=== PATIENT | male | born 1940 | race Caucasian/White ===

== ENCOUNTER 2016-12-29 23:16 | Emergency (ER) | payer MEDICARE, BC ==
[~2016-12-29] VITALS: Ht 170.2 cm; Wt 93.2 kg
[~2016-12-29 23:16] MED LIST: AMBIEN 10MG10 MG PO; AMIODARONE HCL200 MG PO; ASPIR LOW81 MG PO; BUPROPION HCL150 M1 PO; CARVEDILOL3.125 MG PO; COSOPT EYE DROPS OU; COUMADIN5 M1 PO; COUMADIN5 MG PO; COUMADIN7.5 MG PO; EC-NAPROSYN500 MG PO; HYDROCHLOROTH12.5 M2 PO; LATANOPROST 2.2.5 ML OP; LEVOTHYROXIN0.112 MG PO; LISINOPRIL10 MG PO; MIRALAX17 GM PO; NORCO 325 MG-51 TAB PO; PULMICORT180 MCG/A1; RAPAFLO8 MG PO; TESSALON PERLE100 M1 PO; WELLBUTRIN SR150 M2 PO; XANAX0.25 M1 PO; ZITHROMAX Z PA250 MG PO
[2016-12-30] MEDS ORDERED: LORAZEPAM0.5 M1 PO (01:29)
[2016-12-30] MEDS ORDERED: OMEPRAZOLE20 MG PO (01:29)
[2016-12-30 01:36] VITALS: BP 187/101
== END 2016-12-30 01:36 | disposition home or self-care (01) ==
LOC: ED 23:16
DX: R06.4 Hyperventilation (principal); K21.9 Gastro-esophageal reflux disease without esophagitis; J44.9 Chronic obstructive pulmonary disease, unspecified; J45.909 Unspecified asthma, uncomplicated; K43.9 Ventral hernia without obstruction or gangrene; F32.9 Major depressive disorder, single episode, unspecified; F41.9 Anxiety disorder, unspecified; R42 Dizziness and giddiness; R07.89 Other chest pain; R06.02 Shortness of breath
CPT/HCPCS: J2060

== ENCOUNTER → 2017-01-06 | Day surgery (SDC) | payer BC ==
[2016-12-30 01:36] VITALS: BP 187/101
[~2017-01-06] MED LIST changes: +LORAZEPAM0.5 M1 PO; +OMEPRAZOLE20 MG PO
== END ==
LOC: MSO 08:09
DX: R13.10 Dysphagia, unspecified (principal); Z79.01 Long term (current) use of anticoagulants; I10 Essential (primary) hypertension; I48.91 Unspecified atrial fibrillation; G47.33 Obstructive sleep apnea (adult) (pediatric); Z86.711 Personal history of pulmonary embolism
CPT/HCPCS: 00740; J7120

== ENCOUNTER → 2017-04-22 | Outpatient (CLI) | payer BC | LOC: RAD 08:42 | DX: Z01.818 Encounter for other preprocedural examination (principal); Z86.718 Personal history of other venous thrombosis and embolism ==

== ENCOUNTER → 2017-06-06 | Outpatient (CLI) | payer BC | LOC: PT 08:17 | DX: Z01.818 Encounter for other preprocedural examination (principal) ==

== ENCOUNTER 2017-07-18 11:30 | Outpatient (RCR) | payer BC | END 2017-07-18 12:00 | disposition home or self-care (01) | LOC: PT 11:30 | DX: Z47.1 Aftercare following joint replacement surgery (principal); Z96.652 Presence of left artificial knee joint | CPT/HCPCS: G8978-GP; G8979-GP ==

== ENCOUNTER 2017-10-07 10:00 | Outpatient (RCR) | payer BC | END 2017-10-07 10:30 | disposition home or self-care (01) | LOC: PT 10:00 | DX: M54.5 Low back pain (principal); Z96.652 Presence of left artificial knee joint | CPT/HCPCS: G8978-GP; G8979-GP ==

== ENCOUNTER 2017-12-12 21:18 | Inpatient (IN) | payer MEDICARE ==
[~2017-12-12] VITALS: Ht 172.7 cm; Wt 93.0 kg
[2017-12-12 21:59] LABS: HEMATOCRIT 55.6 % (42.0-52.0); HEMOGLOBIN 17.7 g/dL (13.5-18.0); MEAN CELL VOLUME 86 fl (78-100); MEAN CORPUSCULAR HEMOGLOBIN 27 pg (27-31); MEAN CORPUSCULAR HGB CONC 32 g/dL (33-37); MEAN PLATELET VOLUME 9.9 fl (7.4-10.4); PLATELET COUNT 225 K/mm3 (130-400); RED BLOOD COUNT 6.48 M/mm3 (4.20-5.60); RED CELL DISTRIBUTION WIDTH 15.4 % (11.5-14.5); WHITE BLOOD COUNT 14.1 K/mm3 (4.8-10.8)
[2017-12-12 22:02] LABS: ALBUMIN 5.1 g/dL (3.5-5.0); BUN/CREATININE RATIO 19.4 (6.0-26.0); CALCIUM 9.8 mg/dL (8.4-10.2); TOTAL BILIRUBIN 0.9 mg/dL (0.2-1.3); TOTAL PROTEIN 9.3 g/dL (6.3-8.2)
[2017-12-12 22:04] LABS: PROTHROMBIN TIME 28.2 SECONDS (9.0-12.0)
[2017-12-12 22:13] LABS: BAND 1 % (0-10); LYMPHOCYTE 3 % (20-51); MONOCYTE 3 % (3-10); NEUTROPHILS 93 % (42-75)
[2017-12-12] MEDS ORDERED: PULMICORT90 MCG/Ac1 IH (23:48)
[2017-12-12] MEDS ORDERED: AMBIEN10 MG PO (23:49)
[2017-12-12] MEDS ORDERED: COUMADIN 77.5 MG/TAB PO (23:49)
[2017-12-12] MEDS ORDERED: PERCOCET 325 MG1 TA2 PO (23:56)
[2017-12-12] MEDS ORDERED: PRILOSEC 20MG20 MG PO (23:56)
[2017-12-12] MEDS ORDERED: ULTRAM50 M1 PO (23:57)
[2017-12-12] MEDS ORDERED: SYNTHROID112 MCG PO (23:57)
[2017-12-12] MEDS ORDERED: NORCO 325 MG-51 TA1 PO (23:57)
[2017-12-12] MEDS ORDERED: WELLBUTRIN PO (23:58)
[2017-12-12] MEDS ORDERED: COREG 3.123.125 MG/T PO (23:58)
[2017-12-12] MEDS ORDERED: COSOPT EYE DROP10 ML OP (23:58)
[2017-12-12] MEDS ORDERED: ZOLOFT 50MG50 MG PO (23:59)
[2017-12-12] MEDS ORDERED: HCTZ 25MG25 MG PO (23:59)
[2017-12-13] VITALS (8 sets, daily range): BP systolic 130–163; BP diastolic 74–101
[2017-12-13] MEDS ORDERED: WELLBUTRIN SR150 M3 PO (00:10)
[2017-12-13 09:15] LABS: HEMATOCRIT 47.5 % (42.0-52.0); HEMOGLOBIN 15.2 g/dL (13.5-18.0); MEAN CELL VOLUME 88 fl (78-100); MEAN CORPUSCULAR HEMOGLOBIN 28 pg (27-31); MEAN CORPUSCULAR HGB CONC 32 g/dL (33-37); MEAN PLATELET VOLUME 10.3 fl (7.4-10.4); PLATELET COUNT 176 K/mm3 (130-400); RED BLOOD COUNT 5.41 M/mm3 (4.20-5.60); RED CELL DISTRIBUTION WIDTH 14.9 % (11.5-14.5); WHITE BLOOD COUNT 10.5 K/mm3 (4.8-10.8)
[2017-12-13 09:35] LABS: BAND 1 % (0-10); NEUTROPHILS 91 % (42-75)
[2017-12-13 09:36] LABS: LYMPHOCYTE 3 % (20-51); MONOCYTE 5 % (3-10)
[2017-12-13 09:43] LABS: BUN/CREATININE RATIO 25.4 (6.0-26.0); CALCIUM 8.4 mg/dL (8.4-10.2)
[2017-12-14 02:47] VITALS: BP 154/88
[2017-12-14 06:24] VITALS: BP 145/92
[2017-12-14 11:12] VITALS: BP 154/91
[2017-12-14 15:19] VITALS: BP 179/103
[2017-12-14 18:21] VITALS: BP 144/81
[2017-12-14 23:22] VITALS: BP 153/90
[2017-12-15 02:46] VITALS: BP 163/96
[2017-12-15 06:39] VITALS: BP 148/87
[2017-12-15 06:46] LABS: EOS # 0.1 (0.04-0.40); EOS % 1.7 % (0.0-4.0); HEMATOCRIT 43.9 % (42.0-52.0); HEMOGLOBIN 13.9 g/dL (13.5-18.0); LYMPH# 1.4 (1.50-4.00); MEAN CELL VOLUME 88 fl (78-100); MEAN CORPUSCULAR HEMOGLOBIN 28 pg (27-31); MEAN CORPUSCULAR HGB CONC 32 g/dL (33-37); MEAN PLATELET VOLUME 9.4 fl (7.4-10.4); MONO # 0.7 (0.20-0.80); NEU # 4.4 (1.40-6.50); PLATELET COUNT 156 K/mm3 (130-400); RED BLOOD COUNT 5.01 M/mm3 (4.20-5.60); RED CELL DISTRIBUTION WIDTH 14.5 % (11.5-14.5); WHITE BLOOD COUNT 6.6 K/mm3 (4.8-10.8)
[2017-12-15 06:53] LABS: PROTHROMBIN TIME 26.8 SECONDS (9.0-12.0)
[2017-12-15 07:17] LABS: BUN/CREATININE RATIO 12.2 (6.0-26.0); CALCIUM 8.1 mg/dL (8.4-10.2); POTASSIUM 3.2 mmol/L (3.6-5.0)
[2017-12-15 11:20] VITALS: BP 156/100
[2017-12-15] MEDS ORDERED: MIRALAX 255 GM255 GM PO (12:13)
[2017-12-16] MEDS ORDERED: HYDROCHLOROTH12.5 M2 PO (14:08)
[2017-12-16] MEDS ORDERED: WELLBUTRIN SR150 M2 PO (14:13)
[2017-12-16] MEDS ORDERED: OMEPRAZOLE40 MG PO (14:14)
== END 2017-12-15 13:00 | disposition home or self-care (01) | DRG 390 ==
LOC: ED 21:18 → MED/SURG 23:27
PROVIDERS: Family Medicine; ADMIT Nurse Practitioner Primary Care
DX: K56.7 Ileus, unspecified (principal); I10 Essential (primary) hypertension; I48.91 Unspecified atrial fibrillation; Z79.01 Long term (current) use of anticoagulants; Z86.711 Personal history of pulmonary embolism; Z87.891 Personal history of nicotine dependence; Z85.030 Personal history of malignant carcinoid tumor of large intestine; E87.6 Hypokalemia
CPT/HCPCS: J2270; J2405; J7030; Q9967

== ENCOUNTER 2017-12-16 10:27 | Emergency (ER) | payer MEDICARE ==
[~2017-12-16] VITALS: Ht 172.7 cm; Wt 90.9 kg
[~2017-12-16 10:27] MED LIST changes: +AMBIEN10 MG PO; +COREG 3.123.125 MG/T PO; +COSOPT EYE DROP10 ML OP; +COUMADIN 77.5 MG/TAB PO; +HCTZ 25MG25 MG PO; +MIRALAX 255 GM255 GM PO; +NORCO 325 MG-51 TA1 PO; +PERCOCET 325 MG1 TA2 PO; +PRILOSEC 20MG20 MG PO; +PULMICORT90 MCG/Ac1 IH; +SYNTHROID112 MCG PO; +ULTRAM50 M1 PO; +WELLBUTRIN PO; +WELLBUTRIN SR150 M3 PO; +ZOLOFT 50MG50 MG PO
[2017-12-16 11:05] LABS: EOS # 0.1 (0.04-0.40); EOS % 0.9 % (0.0-4.0); HEMATOCRIT 49.9 % (42.0-52.0); HEMOGLOBIN 15.7 g/dL (13.5-18.0); LYMPH# 1.2 (1.50-4.00); MEAN CELL VOLUME 87 fl (78-100); MEAN CORPUSCULAR HEMOGLOBIN 27 pg (27-31); MEAN CORPUSCULAR HGB CONC 32 g/dL (33-37); MEAN PLATELET VOLUME 9.6 fl (7.4-10.4); MONO # 0.7 (0.20-0.80); NEU # 5.6 (1.40-6.50); PLATELET COUNT 184 K/mm3 (130-400); RED BLOOD COUNT 5.77 M/mm3 (4.20-5.60); RED CELL DISTRIBUTION WIDTH 14.8 % (11.5-14.5); WHITE BLOOD COUNT 7.6 K/mm3 (4.8-10.8)
[2017-12-16 11:22] LABS: BUN/CREATININE RATIO 11.4 (6.0-26.0); POTASSIUM 3.5 mmol/L (3.6-5.0); TOTAL PROTEIN 7.5 g/dL (6.3-8.2)
[2017-12-16 12:43] LABS: PH-URINE 6.5 (5.0 - 8.0); URINE APPEARANCE CLEAR; URINE BILIRUBIN NEGATIVE (NEGATIVE); URINE BLOOD TRACE (NEGATIVE); URINE COLOR YELLOW; URINE GLUCOSE NEGATIVE (NEGATIVE); URINE KETONE SMALL (NEGATIVE); URINE LEUKOCYTE ESTERASE NEGATIVE (NEGATIVE); URINE MUCUS PRESENT (NOT PRESENT); URINE NITRATE NEGATIVE (NEGATIVE); URINE PROTEIN(semi-quant) TRACE mg/dL (NEGATIVE); URINE UROBILINOGEN 4 mg/dL (NORMAL)
[2017-12-16] MEDS ORDERED: HYDROCHLOROTH12.5 M2 PO (14:08)
[2017-12-16] MEDS ORDERED: WELLBUTRIN SR150 M2 PO (14:13)
[2017-12-16] MEDS ORDERED: OMEPRAZOLE40 MG PO (14:14)
[2017-12-16 15:00] VITALS: BP 153/87
== END 2017-12-16 16:00 | disposition short-term general hospital (02) ==
LOC: ED 10:27
PROVIDERS: Nurse Practitioner
DX: K56.609 Unspecified intestinal obstruction, unspecified as to partial versus complete obstruction (principal); I48.91 Unspecified atrial fibrillation; Z79.01 Long term (current) use of anticoagulants; I10 Essential (primary) hypertension; Z86.711 Personal history of pulmonary embolism; Z85.038 Personal history of other malignant neoplasm of large intestine; Z90.49 Acquired absence of other specified parts of digestive tract; E03.9 Hypothyroidism, unspecified; Z79.899 Other long term (current) drug therapy
CPT/HCPCS: J1885; J2405; J7030

== ENCOUNTER 2018-02-18 13:35 | Emergency (ER) | payer MEDICARE ==
[~2018-02-18] VITALS: Ht 172.7 cm; Wt 95.5 kg
[~2018-02-18 13:35] MED LIST changes: +OMEPRAZOLE40 MG PO
[2018-02-18] MEDS ORDERED: KEFLEX250 M1 PO (14:51)
[2018-02-18 14:57] VITALS: BP 118/73
== END 2018-02-18 15:08 | disposition home or self-care (01) ==
LOC: ED 13:35
DX: S41.111A Laceration without foreign body of right upper arm, initial encounter (principal); W55.22XA Struck by cow, initial encounter; Y93.K9 Activity, other involving animal care; Y92.008 Other place in unspecified non-institutional (private) residence as the place of occurrence of the external cause; I10 Essential (primary) hypertension; Z79.01 Long term (current) use of anticoagulants; Z79.899 Other long term (current) drug therapy; I48.91 Unspecified atrial fibrillation

== ENCOUNTER 2018-10-16 09:00 | Outpatient (RCR) | payer MEDICARE ==
[~2018-10-16 09:00] MED LIST changes: +KEFLEX250 M1 PO
== END 2018-10-16 09:30 | disposition home or self-care (01) ==
LOC: PT 09:00
DX: R26.89 Other abnormalities of gait and mobility (principal); G20 Parkinson's disease; I10 Essential (primary) hypertension

== ENCOUNTER 2019-03-27 13:30 | Emergency (ER) | payer MEDICARE ==
[~2019-03-27] VITALS: Ht 172.7 cm; Wt 104.5 kg
[2019-03-27 13:59] LABS: EOS # 0.2 (0.04-0.40); EOS % 2.1 % (0.0-4.0); HEMATOCRIT 39.2 % (42.0-52.0); LYMPH# 1.3 (1.50-4.00); MEAN CELL VOLUME 89 fl (78-100); MEAN CORPUSCULAR HEMOGLOBIN 27 pg (27-31); MEAN CORPUSCULAR HGB CONC 31 g/dL (33-37); MEAN PLATELET VOLUME 8.8 fl (7.4-10.4); MONO # 0.6 (0.20-0.80); NEU # 5.7 (1.40-6.50); PLATELET COUNT 245 K/mm3 (130-400); RED BLOOD COUNT 4.43 M/mm3 (4.20-5.60); WHITE BLOOD COUNT 7.8 K/mm3 (4.8-10.8)
[2019-03-27] MEDS ORDERED: MIRAPEX0.5 MG PO (13:59)
[2019-03-27] MEDS ORDERED: WARFARIN SOD5 MG PO (13:59)
[2019-03-27] MEDS ORDERED: CARVEDILOL3.125 MG PO (13:59)
[2019-03-27] MEDS ORDERED: NUPLAZID34 MG PO (14:00)
[2019-03-27] MEDS ORDERED: TEMAZEPAM30 M1 PO (14:00)
[2019-03-27 14:31] LABS: PROTHROMBIN TIME 26.4 SECONDS (9.0-12.0)
[2019-03-27 16:02] VITALS: BP 126/87
== END 2019-03-27 16:00 | disposition home or self-care (01) ==
LOC: ED 13:30
PROVIDERS: Family Medicine
DX: S70.312A Abrasion, left thigh, initial encounter (principal); R60.0 Localized edema; I48.91 Unspecified atrial fibrillation; G20 Parkinson's disease; Z95.1 Presence of aortocoronary bypass graft; Z90.79 Acquired absence of other genital organ(s); Z79.52 Long term (current) use of systemic steroids; Z79.01 Long term (current) use of anticoagulants; W18.30XA Fall on same level, unspecified, initial encounter; Y92.009 Unspecified place in unspecified non-institutional (private) residence as the place of occurrence of the external cause

== ENCOUNTER 2019-04-01 08:39 | Emergency (ER) | payer MEDICARE ==
[~2019-04-01] VITALS: Wt 107.5 kg
[~2019-04-01 08:39] MED LIST changes: +MIRAPEX0.5 MG PO; +NUPLAZID34 MG PO; +TEMAZEPAM30 M1 PO; +WARFARIN SOD5 MG PO
[2019-04-01 09:06] LABS: HEMATOCRIT 40.7 % (42.0-52.0); HEMOGLOBIN 12.5 g/dL (13.5-18.0); MEAN CELL VOLUME 89 fl (78-100); MEAN CORPUSCULAR HEMOGLOBIN 27 pg (27-31); MEAN CORPUSCULAR HGB CONC 31 g/dL (33-37); MEAN PLATELET VOLUME 9.3 fl (7.4-10.4); PLATELET COUNT 292 K/mm3 (130-400); RED CELL DISTRIBUTION WIDTH 16.8 % (11.5-14.5)
[2019-04-01 09:15] LABS: LYMPHOCYTE 12 % (20-51); MONOCYTE 7 % (3-10); NEUTROPHILS 79 % (42-75)
[2019-04-01 09:16] LABS: ALBUMIN 3.8 g/dL (3.4-4.8); POTASSIUM 3.8 mmol/L (3.5-5.1)
[2019-04-01 09:17] LABS: CALCIUM 9.9 mg/dL (8.3-10.5)
[2019-04-01 09:18] LABS: TOTAL PROTEIN 7.1 g/dL (6.2-8.1)
[2019-04-01 09:20] LABS: TOTAL BILIRUBIN 0.9 mg/dL (0.2-1.2)
[2019-04-01 09:29] LABS: D-DIMER 1.34 mg/L FEU (0.15-0.50)
[2019-04-01 09:31] LABS: TROPONIN-I 0.4 ng/mL (<0.030)
[2019-04-01 09:36] LABS: PROTHROMBIN TIME 22.5 SECONDS (9.0-12.0)
[2019-04-01 12:35] LABS: URINE APPEARANCE CLEAR; URINE COLOR YELLOW
[2019-04-01 12:36] LABS: URINE BILIRUBIN NEGATIVE (NEGATIVE); URINE BLOOD NEGATIVE (NEGATIVE); URINE GLUCOSE NEGATIVE (NEGATIVE); URINE KETONE NEGATIVE (NEGATIVE); URINE LEUKOCYTE ESTERASE NEGATIVE (NEGATIVE); URINE MUCUS PRESENT (NOT PRESENT); URINE NITRATE NEGATIVE (NEGATIVE); URINE PROTEIN(semi-quant) TRACE mg/dL (NEGATIVE); URINE UROBILINOGEN NORMAL (NORMAL); URINE WBC 0-1 /hpf (0-3)
[2019-04-01 16:29] VITALS: BP 136/94
== END 2019-04-01 16:20 | disposition short-term general hospital (02) ==
LOC: ED 08:39
PROVIDERS: Nurse Practitioner Primary Care
DX: I26.99 Other pulmonary embolism without acute cor pulmonale (principal); I48.92 Unspecified atrial flutter; R79.89 Other specified abnormal findings of blood chemistry; I10 Essential (primary) hypertension; E07.9 Disorder of thyroid, unspecified; F32.9 Major depressive disorder, single episode, unspecified; K21.9 Gastro-esophageal reflux disease without esophagitis; Z79.01 Long term (current) use of anticoagulants; Z85.038 Personal history of other malignant neoplasm of large intestine; Z90.49 Acquired absence of other specified parts of digestive tract; Z98.890 Other specified postprocedural states; Z90.79 Acquired absence of other genital organ(s)
CPT/HCPCS: J2270; J2405; J3490; J7030; Q9967

== ENCOUNTER 2019-04-13 11:32 | Emergency (ER) | payer MEDICARE ==
[~2019-04-13] VITALS: Wt 103.6 kg
[2019-04-13] MEDS ORDERED: ASPIRIN E.C. 8181 MG PO (11:37)
[2019-04-13] MEDS ORDERED: FUROSEMIDE20 MG PO (11:38)
[2019-04-13] MEDS ORDERED: XARELTO15 MG PO (11:38)
[2019-04-13 11:57] LABS: EOS # 0.2 (0.04-0.40); HEMATOCRIT 43.1 % (42.0-52.0); HEMOGLOBIN 12.9 g/dL (13.5-18.0); LYMPH# 1.3 (1.50-4.00); MEAN CELL VOLUME 89 fl (78-100); MEAN CORPUSCULAR HEMOGLOBIN 27 pg (27-31); MEAN CORPUSCULAR HGB CONC 30 g/dL (33-37); MONO # 0.5 (0.20-0.80); NEU # 6.8 (1.40-6.50); PLATELET COUNT 361 K/mm3 (130-400); RED BLOOD COUNT 4.87 M/mm3 (4.20-5.60); RED CELL DISTRIBUTION WIDTH 16.5 % (11.5-14.5); WHITE BLOOD COUNT 8.9 K/mm3 (4.8-10.8)
[2019-04-13 12:07] LABS: ALBUMIN 3.9 g/dL (3.4-4.8); POTASSIUM 4.2 mmol/L (3.5-5.1)
[2019-04-13 12:08] LABS: CALCIUM 9.7 mg/dL (8.3-10.5)
[2019-04-13 12:09] LABS: TOTAL PROTEIN 7.5 g/dL (6.2-8.1)
[2019-04-13 12:11] LABS: TOTAL BILIRUBIN 0.4 mg/dL (0.2-1.2)
[2019-04-13 12:21] LABS: TROPONIN-I 0.15 ng/mL (<0.030)
[2019-04-13 14:00] VITALS: BP 151/87
== END 2019-04-13 14:12 | disposition short-term general hospital (02) ==
LOC: ED 11:32
PROVIDERS: Nurse Practitioner Primary Care
DX: I22.2 Subsequent non-ST elevation (NSTEMI) myocardial infarction (principal); I21.9 Acute myocardial infarction, unspecified; I48.91 Unspecified atrial fibrillation; I25.10 Atherosclerotic heart disease of native coronary artery without angina pectoris; I10 Essential (primary) hypertension; E07.9 Disorder of thyroid, unspecified; F32.9 Major depressive disorder, single episode, unspecified; Z85.038 Personal history of other malignant neoplasm of large intestine; Z86.711 Personal history of pulmonary embolism; Z90.49 Acquired absence of other specified parts of digestive tract; Z95.5 Presence of coronary angioplasty implant and graft; Z90.79 Acquired absence of other genital organ(s); Z90.89 Acquired absence of other organs; Z98.890 Other specified postprocedural states; Z79.01 Long term (current) use of anticoagulants; Z79.82 Long term (current) use of aspirin

== ENCOUNTER 2019-07-22 10:00 | Outpatient (RCR) | payer MEDICARE ==
[~2019-07-22 10:00] MED LIST changes: +ASPIRIN E.C. 8181 MG PO; +FUROSEMIDE20 MG PO; +XARELTO15 MG PO
== END 2019-08-01 | disposition home or self-care (01) ==
LOC: CARDREHAB
DX: Z48.812 Encounter for surgical aftercare following surgery on the circulatory system (principal); Z95.5 Presence of coronary angioplasty implant and graft; I25.2 Old myocardial infarction

== ENCOUNTER 2019-08-08 12:19 | Emergency (ER) | payer MEDICARE ==
[~2019-08-08] VITALS: Ht 170.2 cm; Wt 102.3 kg
[2019-08-08 13:21] LABS: EOS # 0.1 (0.04-0.40); EOS % 1.4 % (0.0-4.0); HEMATOCRIT 46.3 % (42.0-52.0); HEMOGLOBIN 14.1 g/dL (13.5-18.0); LYMPH# 1.4 (1.50-4.00); MEAN CELL VOLUME 87 fl (78-100); MEAN CORPUSCULAR HEMOGLOBIN 26 pg (27-31); MEAN CORPUSCULAR HGB CONC 31 g/dL (33-37); MEAN PLATELET VOLUME 10.4 fl (7.4-10.4); MONO # 0.5 (0.20-0.80); NEU # 5.9 (1.40-6.50); PLATELET COUNT 174 K/mm3 (130-400); RED BLOOD COUNT 5.34 M/mm3 (4.20-5.60); RED CELL DISTRIBUTION WIDTH 16.1 % (11.5-14.5); WHITE BLOOD COUNT 7.9 K/mm3 (4.8-10.8)
[2019-08-08 13:35] LABS: ALBUMIN 4.3 g/dL (3.4-4.8); POTASSIUM 3.6 mmol/L (3.5-5.1); SODIUM 144 mmol/L (136-145)
[2019-08-08 13:36] LABS: CALCIUM 9.7 mg/dL (8.3-10.5)
[2019-08-08 13:37] LABS: GLUCOSE 134 mg/dL (75-110); TOTAL PROTEIN 7.3 g/dL (6.2-8.1)
[2019-08-08 13:38] LABS: CARBON DIOXIDE 30 mmol/L (23-31)
[2019-08-08 13:39] LABS: TOTAL BILIRUBIN 0.3 mg/dL (0.2-1.2)
[2019-08-08 13:43] LABS: AST-SGOT 15 U/L (5-34)
[2019-08-08 13:44] LABS: ALT/SGPT 22 U/L (0-55)
[2019-08-08 13:53] LABS: TROPONIN-I < 0.03 ng/mL (<0.030)
[2019-08-08] MEDS ORDERED: GOOD NEIGHBOR P20 M1 PO (14:52)
[2019-08-08 15:07] VITALS: BP 123/61
[2019-08-08] MEDS ORDERED: LIPITOR 40MG TA40 MG PO (16:19)
[2019-08-08] MEDS ORDERED: PROVENTIL0.09 MG/A1 IH (16:19)
[2019-08-08] MEDS ORDERED: TESSALON PERLE100 M1 PO (16:20)
[2019-08-08] MEDS ORDERED: TUMS REGULAR S500 MG PO (16:29)
[2019-08-08] MEDS ORDERED: CLOPIDOGREL PO (16:30)
[2019-08-08] MEDS ORDERED: ATIVAN0.5 MG PO (16:31)
[2019-08-08] MEDS ORDERED: XALATAN 2.5 ML2.5 ML OU (16:31)
[2019-08-08] MEDS ORDERED: NITROSTAT0.4 M1 SL (16:33)
[2019-08-08] MEDS ORDERED: NUPLAZID34 MG PO (16:34)
[2019-08-08] MEDS ORDERED: OCUFLOX5 ML OP (16:34)
[2019-08-08] MEDS ORDERED: KLOR-CON 1010 MEQ (16:35)
[2019-08-08] MEDS ORDERED: RESTORIL15 MG PO (16:36)
[2019-08-08] MEDS ORDERED: DESYREL50 MG PO (16:37)
[2019-08-08] MEDS ORDERED: TORSEMIDE10 M1 PO (16:37)
[2019-08-08] MEDS ORDERED: XARELTO20 MG PO (16:38)
== END 2019-08-08 15:07 | disposition home or self-care (01) ==
LOC: ED 12:19
PROVIDERS: Family Medicine
DX: R06.00 Dyspnea, unspecified (principal); I50.9 Heart failure, unspecified; K21.9 Gastro-esophageal reflux disease without esophagitis; G47.30 Sleep apnea, unspecified; I48.91 Unspecified atrial fibrillation; I25.10 Atherosclerotic heart disease of native coronary artery without angina pectoris; Z79.01 Long term (current) use of anticoagulants; Z79.82 Long term (current) use of aspirin; Z85.038 Personal history of other malignant neoplasm of large intestine; Z86.711 Personal history of pulmonary embolism; Z87.891 Personal history of nicotine dependence; Z95.5 Presence of coronary angioplasty implant and graft; Z96.612 Presence of left artificial shoulder joint; Z96.652 Presence of left artificial knee joint
CPT/HCPCS: J1940

== ENCOUNTER 2019-08-31 11:42 | Emergency (ER) | payer MEDICARE ==
[~2019-08-31] VITALS: Wt 106.4 kg
[~2019-08-31 11:42] MED LIST changes: +ATIVAN0.5 MG PO; +CLOPIDOGREL PO; +DESYREL50 MG PO; +GOOD NEIGHBOR P20 M1 PO; +KLOR-CON 1010 MEQ; +LIPITOR 40MG TA40 MG PO; +NITROSTAT0.4 M1 SL; +OCUFLOX5 ML OP; +PROVENTIL0.09 MG/A1 IH; +RESTORIL15 MG PO; +TORSEMIDE10 M1 PO; +TUMS REGULAR S500 MG PO; +XALATAN 2.5 ML2.5 ML OU; +XARELTO20 MG PO
[2019-08-31] MEDS ORDERED: BISOPROLOL FUMARATE/ (11:59)
[2019-08-31] MEDS ORDERED: ISOSORBIDE30 MG PO (12:01)
[2019-08-31] MEDS ORDERED: ALDACTONE 25MG25 MG PO (12:03)
[2019-08-31] MEDS ORDERED: RESTORIL30 M1 PO (12:04)
[2019-08-31] MEDS ORDERED: POTASSIUM CHLORIDE E (12:06)
[2019-08-31 12:12] LABS: EOS # 0.2 (0.04-0.40); EOS % 1.9 % (0.0-4.0); HEMATOCRIT 46.2 % (42.0-52.0); HEMOGLOBIN 14.2 g/dL (13.5-18.0); LYMPH# 1.3 (1.50-4.00); MEAN CELL VOLUME 88 fl (78-100); MEAN CORPUSCULAR HEMOGLOBIN 27 pg (27-31); MEAN CORPUSCULAR HGB CONC 31 g/dL (33-37); MEAN PLATELET VOLUME 9.9 fl (7.4-10.4); MONO # 0.5 (0.20-0.80); NEU # 6.3 (1.40-6.50); PLATELET COUNT 213 K/mm3 (130-400); RED BLOOD COUNT 5.28 M/mm3 (4.20-5.60); RED CELL DISTRIBUTION WIDTH 16.7 % (11.5-14.5); WHITE BLOOD COUNT 8.3 K/mm3 (4.8-10.8)
[2019-08-31 12:21] LABS: POTASSIUM 3.2 mmol/L (3.5-5.1)
[2019-08-31 12:22] LABS: CALCIUM 9.7 mg/dL (8.3-10.5)
[2019-08-31 12:23] LABS: ALBUMIN 4.3 g/dL (3.4-4.8)
[2019-08-31 12:24] LABS: TOTAL PROTEIN 7.4 g/dL (6.2-8.1)
[2019-08-31 12:27] LABS: TOTAL BILIRUBIN 0.3 mg/dL (0.2-1.2)
[2019-08-31 12:33] LABS: TROPONIN-I 0.04 ng/mL (<0.030)
[2019-08-31 12:37] LABS: D-DIMER 0.49 mg/L FEU (0.15-0.50)
[2019-08-31 20:10] VITALS: BP 149/87
== END 2019-08-31 20:10 | disposition short-term general hospital (02) ==
LOC: ED 11:42
PROVIDERS: Nurse Practitioner Family; Nurse Practitioner Primary Care
DX: I25.10 Atherosclerotic heart disease of native coronary artery without angina pectoris (principal); R06.02 Shortness of breath; R79.89 Other specified abnormal findings of blood chemistry; I48.91 Unspecified atrial fibrillation; I25.2 Old myocardial infarction; I11.0 Hypertensive heart disease with heart failure; I50.9 Heart failure, unspecified; E78.5 Hyperlipidemia, unspecified; K21.9 Gastro-esophageal reflux disease without esophagitis; G47.33 Obstructive sleep apnea (adult) (pediatric); Z79.01 Long term (current) use of anticoagulants; Z79.02 Long term (current) use of antithrombotics/antiplatelets; Z85.038 Personal history of other malignant neoplasm of large intestine; Z95.5 Presence of coronary angioplasty implant and graft
CPT/HCPCS: J1940; Q9967

== ENCOUNTER 2019-10-07 11:00 | Outpatient (RCR) | payer BC ==
[~2019-10-07 11:00] MED LIST changes: +ALDACTONE 25MG25 MG PO; +BISOPROLOL FUMARATE/; +ISOSORBIDE30 MG PO; +POTASSIUM CHLORIDE E; +RESTORIL30 M1 PO
[2019-10-07] MEDS ORDERED: POTASSIUM CHLO20 ME4 PO (16:07)
== END 2019-10-31 | disposition home or self-care (01) ==
LOC: CARDREHAB
DX: Z48.812 Encounter for surgical aftercare following surgery on the circulatory system (principal); Z95.5 Presence of coronary angioplasty implant and graft; I25.2 Old myocardial infarction

== ENCOUNTER 2019-12-29 13:00 | Outpatient (RCR) | payer MEDICARE ==
[2019-10-07 17:55] VITALS: BP 130/85
[~2019-12-29 13:00] MED LIST changes: +POTASSIUM CHLO20 ME4 PO
== END 2019-12-29 13:30 | disposition home or self-care (01) ==
LOC: CARDREHAB 13:00
DX: Z48.812 Encounter for surgical aftercare following surgery on the circulatory system (principal); Z95.5 Presence of coronary angioplasty implant and graft; I25.2 Old myocardial infarction

== ENCOUNTER → 2020-01-04 | Outpatient (CLI) | payer MEDICARE ==
[2019-10-07 17:55] VITALS: BP 130/85
[~2020-01-04] MED LIST changes: +ALTERA NEBULIZ1 EACH MC; +BUDESONIDE-FO10.2 G1 IH; +CARVEDILOL6.25 MG PO; +IPRATROPIUM BROM3 M1 IH; +PREDNISONE10 MG PO; +TORSEMIDE20 M1 PO
== END ==
LOC: RAD 09:50
DX: Z86.711 Personal history of pulmonary embolism (principal)

== ENCOUNTER 2020-01-13 12:06 | Emergency (ER) | payer MEDICARE ==
[~2020-01-13] VITALS: Ht 170.2 cm; Wt 110.0 kg
[~2020-01-13 12:06] MED LIST changes: -ALTERA NEBULIZ1 EACH MC; -BUDESONIDE-FO10.2 G1 IH; -CARVEDILOL6.25 MG PO; -IPRATROPIUM BROM3 M1 IH; -PREDNISONE10 MG PO; -TORSEMIDE20 M1 PO
[2020-01-13 12:59] LABS: EOS # 0.2 (0.04-0.40); EOS % 1.9 % (0.0-4.0); HEMATOCRIT 47.2 % (42.0-52.0); HEMOGLOBIN 14.3 g/dL (13.5-18.0); LYMPH# 1.5 (1.50-4.00); MEAN CELL VOLUME 90 fl (78-100); MEAN CORPUSCULAR HEMOGLOBIN 27 pg (27-31); MEAN CORPUSCULAR HGB CONC 30 g/dL (33-37); MEAN PLATELET VOLUME 9.8 fl (7.4-10.4); MONO # 0.8 (0.20-0.80); NEU # 5.9 (1.40-6.50); PLATELET COUNT 233 K/mm3 (130-400); RED BLOOD COUNT 5.25 M/mm3 (4.20-5.60); RED CELL DISTRIBUTION WIDTH 14.9 % (11.5-14.5); WHITE BLOOD COUNT 8.4 K/mm3 (4.8-10.8)
[2020-01-13 13:09] LABS: ALBUMIN 4.3 g/dL (3.4-4.8); POTASSIUM 3.4 mmol/L (3.5-5.1); SODIUM 146 mmol/L (136-145)
[2020-01-13 13:10] LABS: CALCIUM 9.4 mg/dL (8.3-10.5)
[2020-01-13 13:11] LABS: GLUCOSE 74 mg/dL (75-110)
[2020-01-13 13:12] LABS: TOTAL PROTEIN 7.9 g/dL (6.2-8.1)
[2020-01-13 13:13] LABS: CARBON DIOXIDE 30 mmol/L (23-31); D-DIMER 0.44 mg/L FEU (0.15-0.50); TOTAL BILIRUBIN 0.4 mg/dL (0.2-1.2)
[2020-01-13 13:17] LABS: AST-SGOT 12 U/L (5-34)
[2020-01-13 13:18] LABS: ALT/SGPT 18 U/L (0-55)
[2020-01-13] MEDS ORDERED: BUDESONIDE-FO10.2 G1 IH ×2 (13:22)
[2020-01-13 13:26] LABS: PH-URINE 5.5 (5.0 - 8.0); URINE APPEARANCE CLEAR; URINE BILIRUBIN NEGATIVE (NEGATIVE); URINE BLOOD NEGATIVE (NEGATIVE); URINE COLOR YELLOW; URINE GLUCOSE NEGATIVE (NEGATIVE); URINE KETONE NEGATIVE (NEGATIVE); URINE LEUKOCYTE ESTERASE NEGATIVE (NEGATIVE); URINE NITRATE NEGATIVE (NEGATIVE); URINE PROTEIN(semi-quant) NEGATIVE (NEGATIVE); URINE UROBILINOGEN NORMAL (NORMAL)
[2020-01-13 13:27] LABS: URINE WBC 0-1 /hpf (0-3)
[2020-01-13 13:28] LABS: TROPONIN-I < 0.03 ng/mL (<0.030)
[2020-01-13] MEDS ORDERED: CARVEDILOL6.25 MG PO (13:42)
[2020-01-13] MEDS ORDERED: LORAZEPAM0.5 M1 PO (13:43)
[2020-01-13] MEDS ORDERED: TORSEMIDE20 M1 PO (13:45)
[2020-01-13] MEDS ORDERED: IPRATROPIUM BROM3 M1 IH (16:33)
[2020-01-13] MEDS ORDERED: PREDNISONE10 MG PO (16:34)
[2020-01-13] MEDS ORDERED: ALTERA NEBULIZ1 EACH MC (16:38)
[2020-01-13 17:09] VITALS: BP 117/78
== END 2020-01-13 17:20 | disposition home or self-care (01) ==
LOC: ED 12:06
PROVIDERS: Nurse Practitioner Family
DX: J44.1 Chronic obstructive pulmonary disease with (acute) exacerbation (principal); J44.0 Chronic obstructive pulmonary disease with (acute) lower respiratory infection; J20.9 Acute bronchitis, unspecified; I48.0 Paroxysmal atrial fibrillation; E03.9 Hypothyroidism, unspecified; I21.9 Acute myocardial infarction, unspecified; I50.9 Heart failure, unspecified; I25.10 Atherosclerotic heart disease of native coronary artery without angina pectoris; Z79.890 Hormone replacement therapy; Z79.02 Long term (current) use of antithrombotics/antiplatelets; Z79.01 Long term (current) use of anticoagulants
CPT/HCPCS: J1940; J2930; J7030

== ENCOUNTER 2020-03-24 10:00 | Outpatient (RCR) | payer MEDICARE ==
[~2020-03-24 10:00] MED LIST changes: +ALTERA NEBULIZ1 EACH MC; +BUDESONIDE-FO10.2 G1 IH; +CARVEDILOL6.25 MG PO; +IPRATROPIUM BROM3 M1 IH; +PREDNISONE10 MG PO; +TORSEMIDE20 M1 PO
== END 2020-03-24 11:00 | disposition home or self-care (01) ==
LOC: CARDREHAB 10:00
DX: I25.118 Atherosclerotic heart disease of native coronary artery with other forms of angina pectoris (principal); Z95.5 Presence of coronary angioplasty implant and graft

== ENCOUNTER → 2020-04-27 | Outpatient (CLI) | payer MEDICARE | LOC: PT 12:54 | DX: M17.11 Unilateral primary osteoarthritis, right knee (principal) ==

== ENCOUNTER 2020-06-16 13:45 | Outpatient (RCR) | payer MEDICARE | END 2020-06-16 14:15 | disposition home or self-care (01) | LOC: PT 13:45 | DX: Z96.651 Presence of right artificial knee joint (principal) ==

== ENCOUNTER 2020-06-28 10:00 | Outpatient (RCR) | payer MEDICARE | END 2020-07-05 | disposition home or self-care (01) | LOC: CARDREHAB | DX: Z48.812 Encounter for surgical aftercare following surgery on the circulatory system (principal); I25.118 Atherosclerotic heart disease of native coronary artery with other forms of angina pectoris; Z95.5 Presence of coronary angioplasty implant and graft ==

== ENCOUNTER 2020-07-07 14:54 | Emergency (ER) | payer MEDICARE ==
[~2020-07-07] VITALS: Wt 108.9 kg
[2020-07-07] MEDS ORDERED: PANTOPRAZOLE SO40 MG PO (16:05)
[2020-07-07] MEDS ORDERED: TORSEMIDE20 M1 PO (16:08)
[2020-07-07 16:18] LABS: EOS # 0.1 (0.04-0.40); EOS % 1.4 % (0.0-4.0); HEMATOCRIT 43.5 % (42.0-52.0); LYMPH# 1.4 (1.50-4.00); MEAN CELL VOLUME 89 fl (78-100); MEAN CORPUSCULAR HEMOGLOBIN 27 pg (27-31); MEAN CORPUSCULAR HGB CONC 30 g/dL (33-37); MEAN PLATELET VOLUME 9.6 fl (7.4-10.4); MONO # 0.8 (0.20-0.80); NEU # 7.6 (1.40-6.50); PLATELET COUNT 222 K/mm3 (130-400); RED BLOOD COUNT 4.87 M/mm3 (4.20-5.60)
[2020-07-07 16:24] LABS: ALBUMIN 4.1 g/dL (3.4-4.8); POTASSIUM 4.2 mmol/L (3.5-5.1); SODIUM 142 mmol/L (136-145)
[2020-07-07 16:26] LABS: CALCIUM 9.2 mg/dL (8.3-10.5)
[2020-07-07 16:27] LABS: GLUCOSE 108 mg/dL (75-110); TOTAL PROTEIN 7.1 g/dL (6.2-8.1)
[2020-07-07 16:28] LABS: CARBON DIOXIDE 28 mmol/L (23-31)
[2020-07-07 16:29] LABS: TOTAL BILIRUBIN 0.4 mg/dL (0.2-1.2)
[2020-07-07 16:32] LABS: AST-SGOT 10 U/L (5-34)
[2020-07-07 16:33] LABS: ALT/SGPT 17 U/L (0-55); D-DIMER 2.18 mg/L FEU (0.15-0.50)
[2020-07-07 16:45] LABS: TROPONIN-I < 0.03 ng/mL (<0.030)
[2020-07-07 17:04] LABS: ERYTHROCYTE SEDIMENTATION RATE 35 mm/hr (0-20)
[2020-07-07 18:48] VITALS: BP 131/78
== END 2020-07-07 18:54 | disposition home or self-care (01) ==
LOC: ED 14:54
PROVIDERS: Physician Assistant
DX: J44.9 Chronic obstructive pulmonary disease, unspecified (principal); K21.9 Gastro-esophageal reflux disease without esophagitis; I50.9 Heart failure, unspecified; E78.5 Hyperlipidemia, unspecified; I48.91 Unspecified atrial fibrillation; I25.10 Atherosclerotic heart disease of native coronary artery without angina pectoris; I25.2 Old myocardial infarction; Z20.828 Contact with and (suspected) exposure to other viral communicable diseases; Z95.5 Presence of coronary angioplasty implant and graft; Z90.89 Acquired absence of other organs; Z86.711 Personal history of pulmonary embolism; Z79.01 Long term (current) use of anticoagulants; Z79.02 Long term (current) use of antithrombotics/antiplatelets; Z79.51 Long term (current) use of inhaled steroids
CPT/HCPCS: J7030; Q9967

== ENCOUNTER 2020-07-19 09:30 | Outpatient (RCR) | payer MEDICARE ==
[~2020-07-19 09:30] MED LIST changes: +PANTOPRAZOLE SO40 MG PO
[2020-07-27] MEDS ORDERED: ZITHROMAX 250M250 MG PO (17:20)
[2020-07-27 17:57] VITALS: BP 122/72
[2020-09-24] MEDS ORDERED: EFFER-K20 MEQ PO (09:07)
== END 2020-10-17 | disposition home or self-care (01) ==
LOC: CARDREHAB
DX: Z48.812 Encounter for surgical aftercare following surgery on the circulatory system (principal); Z95.5 Presence of coronary angioplasty implant and graft; I25.118 Atherosclerotic heart disease of native coronary artery with other forms of angina pectoris

== ENCOUNTER 2020-07-27 13:17 | Emergency (ER) | payer MEDICARE ==
[2020-07-27 13:55] LABS: ALBUMIN 3.9 g/dL (3.4-4.8); POTASSIUM 3.9 mmol/L (3.5-5.1); SODIUM 143 mmol/L (136-145)
[2020-07-27 13:58] LABS: GLUCOSE 121 mg/dL (75-110); TOTAL PROTEIN 6.7 g/dL (6.2-8.1)
[2020-07-27 13:59] LABS: CARBON DIOXIDE 24 mmol/L (23-31)
[2020-07-27 14:00] LABS: TOTAL BILIRUBIN 0.3 mg/dL (0.2-1.2)
[2020-07-27 14:03] LABS: AST-SGOT 13 U/L (5-34)
[2020-07-27 14:04] LABS: ALT/SGPT 20 U/L (0-55)
[2020-07-27 14:13] LABS: HEMATOCRIT 43.6 % (42.0-52.0); MEAN CELL VOLUME 88 fl (78-100); MEAN CORPUSCULAR HEMOGLOBIN 26 pg (27-31); MEAN CORPUSCULAR HGB CONC 30 g/dL (33-37); MEAN PLATELET VOLUME 10.1 fl (7.4-10.4); PLATELET COUNT 234 K/mm3 (130-400); RED BLOOD COUNT 4.98 M/mm3 (4.20-5.60); RED CELL DISTRIBUTION WIDTH 16.1 % (11.5-14.5); WHITE BLOOD COUNT 10.1 K/mm3 (4.8-10.8)
[2020-07-27 14:21] LABS: D-DIMER 1.86 mg/L FEU (0.15-0.50)
[2020-07-27 14:22] LABS: TROPONIN-I < 0.03 ng/mL (<0.030)
[2020-07-27 14:38] LABS: LYMPHOCYTE 11 % (20-51); MONOCYTE 7 % (3-10); NEUTROPHILS 78 % (42-75)
[2020-07-27 14:40] LABS: OVALOCYTES 1+
[2020-07-27] MEDS ORDERED: ZITHROMAX 250M250 MG PO (17:20)
[2020-07-27 17:57] VITALS: BP 122/72
== END 2020-07-27 17:57 | disposition home or self-care (01) ==
LOC: ED 13:17
PROVIDERS: Nurse Practitioner Family
DX: J20.9 Acute bronchitis, unspecified (principal); R63.5 Abnormal weight gain; I25.2 Old myocardial infarction; I50.9 Heart failure, unspecified; I25.10 Atherosclerotic heart disease of native coronary artery without angina pectoris; K21.9 Gastro-esophageal reflux disease without esophagitis; N18.9 Chronic kidney disease, unspecified; Z86.711 Personal history of pulmonary embolism; I48.91 Unspecified atrial fibrillation; Z79.01 Long term (current) use of anticoagulants; Z79.51 Long term (current) use of inhaled steroids; Z79.890 Hormone replacement therapy; Z79.02 Long term (current) use of antithrombotics/antiplatelets
CPT/HCPCS: J7030

== ENCOUNTER → 2020-09-04 | Outpatient (CLI) | payer MEDICARE ==
[~2020-09-04] MED LIST changes: +ADULT ASPIRIN R81 MG PO; +ARICEPT5 M1 PO; +COLCHICINE0.6 M1 PO; +EFFER-K20 MEQ PO; +FLOMAX0.4 MG PO; +LOPRESSOR 225 MG/TAB PO; +ZITHROMAX 250M250 MG PO
== END ==
LOC: LAB 09:42
DX: R05 Cough (principal); Z20.822 Contact with and (suspected) exposure to COVID-19

== ENCOUNTER 2020-09-23 22:01 | Emergency (ER) | payer MEDICARE ==
[~2020-09-23 22:01] MED LIST changes: -ADULT ASPIRIN R81 MG PO; -ARICEPT5 M1 PO; -COLCHICINE0.6 M1 PO; -EFFER-K20 MEQ PO; -FLOMAX0.4 MG PO; -LOPRESSOR 225 MG/TAB PO
[2020-09-23 23:26] LABS: HEMATOCRIT 42.2 % (42.0-52.0); MEAN CELL VOLUME 86 fl (78-100); MEAN CORPUSCULAR HEMOGLOBIN 26 pg (27-31); MEAN CORPUSCULAR HGB CONC 31 g/dL (33-37); PLATELET COUNT 278 K/mm3 (130-400); RED BLOOD COUNT 4.93 M/mm3 (4.20-5.60); RED CELL DISTRIBUTION WIDTH 16.8 % (11.5-14.5); WHITE BLOOD COUNT 10.7 K/mm3 (4.8-10.8)
[2020-09-23 23:41] LABS: ALBUMIN 3.7 g/dL (3.4-4.8)
[2020-09-23 23:42] LABS: CALCIUM 9.2 mg/dL (8.3-10.5)
[2020-09-23 23:44] LABS: TOTAL PROTEIN 7.5 g/dL (6.2-8.1)
[2020-09-23 23:45] LABS: TOTAL BILIRUBIN 0.5 mg/dL (0.2-1.2)
[2020-09-23 23:49] LABS: POTASSIUM 2.7 mmol/L (3.5-5.1)
[2020-09-23 23:58] LABS: LYMPHOCYTE 5 % (20-51); MONOCYTE 5 % (3-10); NEUTROPHILS 88 % (42-75)
[2020-09-24 00:53] LABS: PH-URINE 5.5 (5.0 - 8.0); URINE APPEARANCE CLEAR; URINE COLOR YELLOW; URINE PROTEIN(semi-quant) TRACE mg/dL (NEGATIVE)
[2020-09-24 00:54] LABS: URINE BILIRUBIN NEGATIVE (NEGATIVE); URINE BLOOD NEGATIVE (NEGATIVE); URINE GLUCOSE NEGATIVE (NEGATIVE); URINE KETONE NEGATIVE (NEGATIVE); URINE LEUKOCYTE ESTERASE NEGATIVE (NEGATIVE); URINE NITRATE NEGATIVE (NEGATIVE); URINE UROBILINOGEN NORMAL (NORMAL)
[2020-09-24 00:55] LABS: URINE WBC 0-1 /hpf (0-3)
[2020-09-24] MEDS ORDERED: EFFER-K20 MEQ PO (09:07)
[2020-09-24 11:06] VITALS: BP 131/74
== END 2020-09-24 09:44 | disposition home or self-care (01) ==
LOC: ED 22:01
PROVIDERS: Family Medicine
DX: S63.502A Unspecified sprain of left wrist, initial encounter (principal); E87.6 Hypokalemia; I48.91 Unspecified atrial fibrillation; I25.10 Atherosclerotic heart disease of native coronary artery without angina pectoris; I50.9 Heart failure, unspecified; I25.2 Old myocardial infarction; J44.9 Chronic obstructive pulmonary disease, unspecified; G20 Parkinson's disease; Z79.01 Long term (current) use of anticoagulants; Z20.822 Contact with and (suspected) exposure to COVID-19; Z86.711 Personal history of pulmonary embolism; Z95.9 Presence of cardiac and vascular implant and graft, unspecified; Z79.02 Long term (current) use of antithrombotics/antiplatelets; Z79.51 Long term (current) use of inhaled steroids; W18.09XA Striking against other object with subsequent fall, initial encounter
CPT/HCPCS: A4570

== ENCOUNTER 2020-11-22 13:43 | Outpatient (RCR) | payer MEDICARE ==
[~2020-11-22 13:43] MED LIST changes: +EFFER-K20 MEQ PO
== END 2020-12-14 17:00 ==
LOC: PT
DX: R26.89 Other abnormalities of gait and mobility (principal)

== ENCOUNTER → 2021-01-05 | Outpatient (CLI) | payer MEDICARE ==
[~2021-01-05] MED LIST changes: +ADULT ASPIRIN R81 MG PO; +ARICEPT5 M1 PO; +COLCHICINE0.6 M1 PO; +FLOMAX0.4 MG PO; +LOPRESSOR 225 MG/TAB PO
[2021-01-06 18:18] LABS: HEPATITIS B SURFACE ANTIBODY <2.0 (()); HEPATITIS B SURFACE ANTIGEN Negative (Negative); HEPATITIS C VIRUS ANTIBODY Negative (Negative)
== END ==
LOC: LAB 15:35
PROVIDERS: Internal Medicine
DX: R93.2 Abnormal findings on diagnostic imaging of liver and biliary tract (principal); R16.0 Hepatomegaly, not elsewhere classified; Z85.09 Personal history of malignant neoplasm of other digestive organs

== ENCOUNTER → 2021-01-22 | Outpatient (CLI) | payer MEDICARE ==
[2021-01-23 12:34] LABS: HEPATITIS A AB (HAV) IGG INDEX 0.27 Index (<=1.00)
== END ==
LOC: LAB 14:52
PROVIDERS: Internal Medicine
DX: R16.0 Hepatomegaly, not elsewhere classified (principal); Z85.09 Personal history of malignant neoplasm of other digestive organs

== ENCOUNTER → 2021-02-02 | Outpatient (CLI) | payer MEDICARE ==
[2021-02-02 15:22] LABS: POTASSIUM 3.9 mmol/L (3.5-5.1)
[2021-02-02 15:23] LABS: CALCIUM 9.3 mg/dL (8.3-10.5)
[2021-02-02 15:24] LABS: TOTAL PROTEIN 7.1 g/dL (6.2-8.1)
[2021-02-02 15:26] LABS: TOTAL BILIRUBIN 0.3 mg/dL (0.2-1.2)
[2021-02-02 16:14] LABS: ALBUMIN 3.8 g/dL (3.4-4.8)
== END ==
LOC: LAB 15:00
DX: N18.30 Chronic kidney disease, stage 3 unspecified (principal)

== ENCOUNTER 2021-02-21 10:48 | Outpatient (RCR) | payer MEDICARE ==
[~2021-02-21 10:48] MED LIST changes: -ADULT ASPIRIN R81 MG PO; -ARICEPT5 M1 PO; -COLCHICINE0.6 M1 PO; -FLOMAX0.4 MG PO; -LOPRESSOR 225 MG/TAB PO
[2021-03-12] MEDS ORDERED: ADULT ASPIRIN R81 MG PO (19:44)
[2021-03-12] MEDS ORDERED: LOPRESSOR 225 MG/TAB PO (19:46)
[2021-03-12] MEDS ORDERED: FLOMAX0.4 MG PO (19:50)
[2021-03-12] MEDS ORDERED: LORAZEPAM0.5 M1 PO (19:54)
[2021-03-12] MEDS ORDERED: DESYREL50 MG PO (19:57)
[2021-05-10] MEDS ORDERED: ARICEPT5 M1 PO (09:16)
[2021-05-10] MEDS ORDERED: COLCHICINE0.6 M1 PO (10:43)
== END 2021-05-22 | disposition still patient (30) ==
LOC: PT
DX: R29.898 Other symptoms and signs involving the musculoskeletal system (principal)

== ENCOUNTER 2021-03-12 19:19 | Emergency (ER) | payer MEDICARE ==
[~2021-03-12] VITALS: Ht 170.2 cm; Wt 100.0 kg
[2021-03-12] MEDS ORDERED: ADULT ASPIRIN R81 MG PO (19:44)
[2021-03-12] MEDS ORDERED: LOPRESSOR 225 MG/TAB PO (19:46)
[2021-03-12] MEDS ORDERED: FLOMAX0.4 MG PO (19:50)
[2021-03-12] MEDS ORDERED: LORAZEPAM0.5 M1 PO (19:54)
[2021-03-12] MEDS ORDERED: DESYREL50 MG PO (19:57)
[2021-03-12 20:38] VITALS: BP 122/79
== END 2021-03-12 20:38 | disposition home or self-care (01) ==
LOC: ED 19:19
DX: M79.89 Other specified soft tissue disorders (principal); E07.9 Disorder of thyroid, unspecified; Z98.890 Other specified postprocedural states; Z79.890 Hormone replacement therapy

== ENCOUNTER 2021-05-10 08:40 | Emergency (ER) | payer MEDICARE ==
[~2021-05-10] VITALS: Ht 170.2 cm; Wt 96.4 kg
[~2021-05-10 08:40] MED LIST changes: +ADULT ASPIRIN R81 MG PO; +FLOMAX0.4 MG PO; +LOPRESSOR 225 MG/TAB PO
[2021-05-10] MEDS ORDERED: ARICEPT5 M1 PO (09:16)
[2021-05-10 09:58] LABS: BASO # 0.01 K/mm3 (0.02-0.10); EOS # 0.06 K/mm3 (0.04-0.40); EOS % 0.6 % (0.0-4.0); HEMATOCRIT 39.4 % (42.0-52.0); HEMOGLOBIN 11.6 g/dL (13.5-18.0); LYMPH# 0.67 K/mm3 (1.50-4.00); MEAN CELL VOLUME 87 fl (78-100); MEAN CORPUSCULAR HEMOGLOBIN 26 pg (27-31); MEAN CORPUSCULAR HGB CONC 29 g/dL (33-37); MEAN PLATELET VOLUME 9.4 fl (7.4-10.4); NEU # 8.34 K/mm3 (1.40-6.50); PLATELET COUNT 265 K/mm3 (130-400); RED BLOOD COUNT 4.53 M/mm3 (4.20-5.60); RED CELL DISTRIBUTION WIDTH 16.9 % (11.5-14.5); WHITE BLOOD COUNT 9.7 K/mm3 (4.8-10.8)
[2021-05-10 10:12] LABS: ALBUMIN 3.4 g/dL (3.4-4.8); POTASSIUM 3.6 mmol/L (3.5-5.1)
[2021-05-10 10:13] LABS: CALCIUM 9.5 mg/dL (8.3-10.5)
[2021-05-10 10:14] LABS: TOTAL PROTEIN 6.9 g/dL (6.2-8.1)
[2021-05-10 10:16] LABS: TOTAL BILIRUBIN 0.5 mg/dL (0.2-1.2)
[2021-05-10] MEDS ORDERED: COLCHICINE0.6 M1 PO (10:43)
[2021-05-10 10:52] VITALS: BP 104/62
== END 2021-05-10 10:55 | disposition home or self-care (01) ==
LOC: ED 08:40
PROVIDERS: Nurse Practitioner
DX: M10.9 Gout, unspecified (principal); R22.32 Localized swelling, mass and lump, left upper limb; E07.9 Disorder of thyroid, unspecified; Z79.890 Hormone replacement therapy; Z79.01 Long term (current) use of anticoagulants

== ENCOUNTER 2021-05-23 09:44 | Outpatient (RCR) | payer MEDICARE ==
[~2021-05-23 09:44] MED LIST changes: +ARICEPT5 M1 PO; +COLCHICINE0.6 M1 PO
== END 2021-08-06 | disposition home or self-care (01) ==
LOC: PT
DX: R29.898 Other symptoms and signs involving the musculoskeletal system (principal)

== ENCOUNTER 2021-07-01 10:06 | Emergency (ER) | payer MEDICARE ==
[~2021-07-01] VITALS: Ht 170.2 cm; Wt 96.4 kg
[2021-07-01 11:42] LABS: BASO # 0.02 K/mm3 (0.02-0.10); EOS # 0.12 K/mm3 (0.04-0.40); EOS % 1.4 % (0.0-4.0); HEMATOCRIT 39.5 % (42.0-52.0); HEMOGLOBIN 11.7 g/dL (13.5-18.0); LYMPH# 1.14 K/mm3 (1.50-4.00); MEAN CELL VOLUME 87 fl (78-100); MEAN CORPUSCULAR HEMOGLOBIN 26 pg (27-31); MEAN CORPUSCULAR HGB CONC 30 g/dL (33-37); MEAN PLATELET VOLUME 9.1 fl (7.4-10.4); MONO # 0.38 K/mm3 (0.20-0.80); NEU # 6.73 K/mm3 (1.40-6.50); PLATELET COUNT 191 K/mm3 (130-400); RED BLOOD COUNT 4.54 M/mm3 (4.20-5.60); WHITE BLOOD COUNT 8.5 K/mm3 (4.8-10.8)
[2021-07-01 11:52] LABS: ALBUMIN 3.6 g/dL (3.4-4.8); POTASSIUM 3.3 mmol/L (3.5-5.1); SODIUM 145 mmol/L (136-145)
[2021-07-01 11:53] LABS: CALCIUM 9.2 mg/dL (8.3-10.5)
[2021-07-01 11:54] LABS: GLUCOSE 143 mg/dL (75-110); TOTAL PROTEIN 6.5 g/dL (6.2-8.1)
[2021-07-01 11:55] LABS: CARBON DIOXIDE 28 mmol/L (23-31)
[2021-07-01 11:56] LABS: TOTAL BILIRUBIN 0.4 mg/dL (0.2-1.2)
[2021-07-01 12:00] LABS: AST-SGOT 5 U/L (5-34)
[2021-07-01 12:01] LABS: ALT/SGPT 6 U/L (0-55)
[2021-07-01 12:09] LABS: TROPONIN-I < 0.030 ng/mL (<0.030)
[2021-07-01 13:47] VITALS: BP 126/64
== END 2021-07-01 13:40 | disposition home or self-care (01) ==
LOC: ED 10:06
PROVIDERS: Nurse Practitioner Family
DX: J06.9 Acute upper respiratory infection, unspecified (principal); I50.9 Heart failure, unspecified; I48.91 Unspecified atrial fibrillation; Z95.5 Presence of coronary angioplasty implant and graft; Z20.822 Contact with and (suspected) exposure to COVID-19; Z79.899 Other long term (current) drug therapy; Z79.82 Long term (current) use of aspirin

== ENCOUNTER 2021-08-18 16:11 | Emergency (ER) | payer MEDICARE ==
[2021-08-18 17:06] LABS: BASO # 0.01 K/mm3 (0.02-0.10); EOS # 0.08 K/mm3 (0.04-0.40); HEMATOCRIT 39.5 % (42.0-52.0); HEMOGLOBIN 11.6 g/dL (13.5-18.0); LYMPH# 0.99 K/mm3 (1.50-4.00); MEAN CELL VOLUME 87 fl (78-100); MEAN CORPUSCULAR HEMOGLOBIN 26 pg (27-31); MEAN CORPUSCULAR HGB CONC 29 g/dL (33-37); MEAN PLATELET VOLUME 8.7 fl (7.4-10.4); MONO # 0.45 K/mm3 (0.20-0.80); NEU # 2.52 K/mm3 (1.40-6.50); PLATELET COUNT 144 K/mm3 (130-400); RED BLOOD COUNT 4.55 M/mm3 (4.20-5.60); RED CELL DISTRIBUTION WIDTH 17.3 % (11.5-14.5); WHITE BLOOD COUNT 4.1 K/mm3 (4.8-10.8)
[2021-08-18 17:17] LABS: ALBUMIN 3.3 g/dL (3.4-4.8); POTASSIUM 3.8 mmol/L (3.5-5.1)
[2021-08-18 17:18] LABS: CALCIUM 8.6 mg/dL (8.3-10.5)
[2021-08-18 17:19] LABS: TOTAL PROTEIN 6.1 g/dL (6.2-8.1)
[2021-08-18 17:21] LABS: TOTAL BILIRUBIN 0.3 mg/dL (0.2-1.2)
[2021-08-18 17:23] LABS: D-DIMER 0.63 mg/L FEU (0.15-0.50)
[2021-08-18] MEDS ORDERED: PAXLOVID CO-PA1 EACH PO (18:44)
[2021-08-18 19:02] VITALS: BP 146/76
== END 2021-08-18 19:31 | disposition home or self-care (01) ==
LOC: ED 16:11
PROVIDERS: Family Medicine
DX: U07.1 COVID-19 (principal); I48.91 Unspecified atrial fibrillation; I50.9 Heart failure, unspecified; G20 Parkinson's disease; Z87.891 Personal history of nicotine dependence; Z79.01 Long term (current) use of anticoagulants; Z79.82 Long term (current) use of aspirin; Z79.899 Other long term (current) drug therapy

== ENCOUNTER → 2021-08-27 | Outpatient (CLI) | payer MEDICARE ==
[~2021-08-27] MED LIST changes: +PAXLOVID CO-PA1 EACH PO
[2021-08-27 11:57] LABS: BASO # 0.02 K/mm3 (0.02-0.10); EOS % 1.2 % (0.0-4.0); HEMOGLOBIN 12.1 g/dL (13.5-18.0); LYMPH# 1.01 K/mm3 (1.50-4.00); MEAN CELL VOLUME 86 fl (78-100); MEAN CORPUSCULAR HEMOGLOBIN 26 pg (27-31); MEAN CORPUSCULAR HGB CONC 30 g/dL (33-37); MEAN PLATELET VOLUME 9.7 fl (7.4-10.4); MONO # 0.46 K/mm3 (0.20-0.80); NEU # 6.89 K/mm3 (1.40-6.50); PLATELET COUNT 209 K/mm3 (130-400); RED BLOOD COUNT 4.64 M/mm3 (4.20-5.60); RED CELL DISTRIBUTION WIDTH 17.4 % (11.5-14.5); WHITE BLOOD COUNT 8.5 K/mm3 (4.8-10.8)
[2021-08-27 12:47] LABS: PROTHROMBIN TIME 12.2 SECONDS (9.0-12.0)
[2021-08-27 15:36] LABS: ALBUMIN 3.6 g/dL (3.4-4.8); POTASSIUM 3.6 mmol/L (3.5-5.1)
[2021-08-27 15:37] LABS: CALCIUM 9.3 mg/dL (8.3-10.5)
[2021-08-27 15:38] LABS: TOTAL PROTEIN 6.6 g/dL (6.2-8.1)
[2021-08-27 15:40] LABS: TOTAL BILIRUBIN 0.4 mg/dL (0.2-1.2)
== END ==
LOC: LAB 10:31
DX: E78.5 Hyperlipidemia, unspecified (principal); R16.0 Hepatomegaly, not elsewhere classified; R97.8 Other abnormal tumor markers; R93.2 Abnormal findings on diagnostic imaging of liver and biliary tract; R74.8 Abnormal levels of other serum enzymes

== ENCOUNTER → 2021-09-04 | Outpatient (CLI) | payer MEDICARE | LOC: RAD 13:50 | DX: M46.90 Unspecified inflammatory spondylopathy, site unspecified (principal) | CPT/HCPCS: Q9967 ==

== ENCOUNTER → 2021-10-15 | Outpatient (CLI) | payer MEDICARE ==
[2021-10-15 14:54] LABS: ALT/SGPT 14 U/L (0-55); AST-SGOT 10 U/L (5-34)
== END ==
LOC: LAB 13:50
PROVIDERS: Student in an Organized Health Care Education/Training Program
DX: M46.90 Unspecified inflammatory spondylopathy, site unspecified (principal); Z79.899 Other long term (current) drug therapy

== ENCOUNTER → 2021-11-29 | Outpatient (CLI) | payer MEDICARE | LOC: RAD 12:00 | DX: R13.12 Dysphagia, oropharyngeal phase (principal) ==

== ENCOUNTER 2022-02-16 13:07 | Emergency (ER) | payer MEDICARE ==
[~2022-02-16] VITALS: Ht 170.2 cm; Wt 94.1 kg
[2022-02-16] MEDS ORDERED: ALLOPURINOL300 M1 PO (13:22)
[2022-02-16] MEDS ORDERED: FOLIC ACID1 MG PO (13:27)
[2022-02-16] MEDS ORDERED: METHOTREXATE2.5 MG PO (13:28)
[2022-02-16 14:03] LABS: HEMATOCRIT 40.9 % (42.0-52.0); HEMOGLOBIN 12.5 g/dL (13.5-18.0); MEAN CELL VOLUME 98 fl (78-100); MEAN CORPUSCULAR HEMOGLOBIN 30 pg (27-31); MEAN CORPUSCULAR HGB CONC 31 g/dL (33-37); MEAN PLATELET VOLUME 9.1 fl (7.4-10.4); PLATELET COUNT 182 K/mm3 (130-400); RED BLOOD COUNT 4.16 M/mm3 (4.20-5.60); RED CELL DISTRIBUTION WIDTH 17.8 % (11.5-14.5)
[2022-02-16 14:07] LABS: WHITE BLOOD COUNT 22.7 K/mm3 (4.8-10.8)
[2022-02-16 14:13] LABS: POTASSIUM 3.7 mmol/L (3.5-5.1)
[2022-02-16 14:14] LABS: CALCIUM 8.9 mg/dL (8.3-10.5)
[2022-02-16 14:38] LABS: BAND 2 % (0-10); LYMPHOCYTE 1 % (20-51); MONOCYTE 2 % (3-10); NEUTROPHILS 94 % (42-75)
[2022-02-16] MEDS ORDERED: PREDNISONE10 MG PO (15:01)
[2022-02-16 15:12] LABS: URINE APPEARANCE CLEAR; URINE BILIRUBIN NEGATIVE (NEGATIVE); URINE BLOOD NEGATIVE (NEGATIVE); URINE COLOR YELLOW; URINE GLUCOSE NEGATIVE (NEGATIVE); URINE KETONE NEGATIVE (NEGATIVE); URINE LEUKOCYTE ESTERASE NEGATIVE (NEGATIVE); URINE NITRATE NEGATIVE (NEGATIVE); URINE PROTEIN(semi-quant) NEGATIVE (NEGATIVE); URINE UROBILINOGEN NORMAL (NORMAL); URINE WBC 0-1 /hpf (0-3)
[2022-02-16 15:54] VITALS: BP 120/64
== END 2022-02-16 15:50 | disposition home or self-care (01) ==
LOC: ED 13:07
PROVIDERS: Family Medicine
DX: S80.12XA Contusion of left lower leg, initial encounter (principal); Z79.01 Long term (current) use of anticoagulants; X58.XXXA Exposure to other specified factors, initial encounter

== ENCOUNTER → 2022-02-22 | Outpatient (CLI) | payer MEDICARE ==
[~2022-02-22] MED LIST changes: +ALLOPURINOL300 M1 PO; +FOLIC ACID1 MG PO; +METHOTREXATE2.5 MG PO
== END ==
LOC: RAD 10:34
DX: M79.662 Pain in left lower leg (principal); M79.89 Other specified soft tissue disorders; R60.0 Localized edema

== ENCOUNTER 2022-09-16 10:47 | Outpatient (RCR) | payer MEDICARE ==
[~2022-09-16 10:47] MED LIST changes: +FEOSOL325 MG PO
[2022-09-29] MEDS ORDERED: ASPIRIN E.C. 8181 MG (08:05)
[2022-09-29] MEDS ORDERED: PROPRANOLOL HCL20 M2 PO (08:08)
[2022-09-29] MEDS ORDERED: TIMOLOL MALEATE5 M1 (08:10)
[2022-09-29] MEDS ORDERED: LATANOPROST 2.2.5 ML OU (08:10)
[2022-09-29] MEDS ORDERED: CARBIDOPA/LEVODOPA PO (08:11)
[2022-09-29] MEDS ORDERED: DONEPEZIL HCL5 M1 PO (08:12)
== END 2022-10-04 | disposition home or self-care (01) ==
LOC: PT
DX: Z47.1 Aftercare following joint replacement surgery (principal); M25.512 Pain in left shoulder

== ENCOUNTER 2022-10-07 17:26 | Emergency (ER) | payer MEDICARE ==
[~2022-10-07] VITALS: Ht 170.2 cm; Wt 93.2 kg
[~2022-10-07 17:26] MED LIST changes: +ASPIRIN E.C. 8181 MG; +CARBIDOPA/LEVODOPA PO; +DONEPEZIL HCL5 M1 PO; +LATANOPROST 2.2.5 ML OU; +PROPRANOLOL HCL20 M2 PO; +TIMOLOL MALEATE5 M1
[2022-10-07 18:07] LABS: BASO # 0.01 K/mm3 (0.02-0.10); EOS # 0.08 K/mm3 (0.04-0.40); EOS % 0.6 % (0.0-4.0); HEMATOCRIT 35.4 % (42.0-52.0); HEMOGLOBIN 10.8 g/dL (13.5-18.0); LYMPH# 1.51 K/mm3 (1.50-4.00); MEAN CELL VOLUME 97 fl (78-100); MEAN CORPUSCULAR HEMOGLOBIN 29 pg (27-31); MEAN CORPUSCULAR HGB CONC 31 g/dL (33-37); MEAN PLATELET VOLUME 9.6 fl (7.4-10.4); MONO # 0.96 K/mm3 (0.20-0.80); PLATELET COUNT 221 K/mm3 (130-400); RED BLOOD COUNT 3.67 M/mm3 (4.20-5.60); WHITE BLOOD COUNT 12.6 K/mm3 (4.8-10.8)
[2022-10-07 18:18] LABS: POTASSIUM 4.5 mmol/L (3.5-5.1); SODIUM 140 mmol/L (136-145)
[2022-10-07 18:20] LABS: GLUCOSE 109 mg/dL (75-110); TOTAL PROTEIN 7.1 g/dL (6.2-8.1)
[2022-10-07 18:21] LABS: CARBON DIOXIDE 26 mmol/L (23-31)
[2022-10-07 18:22] LABS: TOTAL BILIRUBIN 0.3 mg/dL (0.2-1.2)
[2022-10-07 18:25] LABS: AST-SGOT 21 U/L (5-34)
[2022-10-07 18:27] LABS: ALT/SGPT 22 U/L (0-55); PARTIAL THROMBOPLASTIN TIME 33.3 SECONDS (21.0-32.0); PROTHROMBIN TIME 13.3 SECONDS (9.0-12.0)
[2022-10-07 18:40] LABS: TROPONIN-I < 0.030 ng/mL (<0.030)
[2022-10-07] MEDS ORDERED: COSOPT EYE DROPS OU (18:46)
[2022-10-07] MEDS ORDERED: MULTAQ400 M1 PO (18:47)
[2022-10-07] MEDS ORDERED: NIZORAL CREAM15 GM TP (18:52)
[2022-10-07] MEDS ORDERED: METOPROLOL SUCC25 M1 PO (18:55)
[2022-10-07] MEDS ORDERED: NITROGLYCERIN0.4 M1 SL (18:59)
[2022-10-07] MEDS ORDERED: KLOR-CON M1010 MEQ PO (19:09)
[2022-10-07] MEDS ORDERED: HYDROCORT 2.5%-30 GM TP (19:16)
[2022-10-07 21:40] VITALS: BP 122/69
== END 2022-10-07 20:40 | disposition home or self-care (01) ==
LOC: ED 17:26
PROVIDERS: Nurse Practitioner
DX: R53.1 Weakness (principal); R53.81 Other malaise; R53.83 Other fatigue; R60.0 Localized edema; Z20.822 Contact with and (suspected) exposure to COVID-19

== ENCOUNTER 2023-02-04 13:31 | Outpatient (RCR) | payer MEDICARE ==
[~2023-02-04 13:31] MED LIST changes: +HYDROCORT 2.5%-30 GM TP; +KLOR-CON M1010 MEQ PO; +METOPROLOL SUCC25 M1 PO; +MULTAQ400 M1 PO; +NITROGLYCERIN0.4 M1 SL; +NIZORAL CREAM15 GM TP
== END 2023-03-06 | disposition home or self-care (01) ==
LOC: PT
DX: G20 Parkinson's disease (principal)